=== PATIENT | male | born 1950 | race Caucasian/White ===

== ENCOUNTER 2019-06-05 06:55 | Day surgery (SDC) | payer MEDICARE, BC ==
[2019-06-05] MEDS ORDERED: Sodium Chloride 0.9% 10 ML Syringe FLUSH PRN (07:00)
[2019-06-05] MEDS ORDERED: Lactated Ringers 1,000 ML IV SCH (07:00)
[2019-06-05] MEDS ORDERED: Lidocaine 2% 100 MG/5 ML Syringe ONE (07:57)
[2019-06-05] MEDS ORDERED: Propofol 200 MG/20 ML SDV ONE (07:57)
[2019-06-05] MEDS ORDERED: Midazolam 1 MG/ML 2 ML SDV ONE (07:57)
[2019-06-05] MEDS ORDERED: EPINEPHrine 1:10,000 1 MG/10 ML Syringe ONE (08:06)
--- NOTE | 2019-06-05 08:40 | PCM.PRNOTE ---
- Free Text/Narrative Note: PROCEDURE PERFORMED: Esophagogastroduodenoscopy with biopsy PRE-PROCEDURE DIAGNOSIS/INDICATION FOR PROCEDURE: Persistent reflux despite PPI CONSENT: Informed consent was obtained prior to the procedure after discussion of the risks (including pain, bleeding, infection, perforation, need for further procedures, adverse reaction to anesthesia, cardiovascular event), benefits and alternatives and expected outcomes. Verbal consent given and consent form signed. PROCEDURAL PAUSE: Completed SEDATION: Per anesthesia DESCRIPTION OF PROCEDURE: Patient was brought back to the operating room and placed in a left lateral decubitus position. Bite block placed. After adequate sedation and anesthetic was administered, endoscope was inserted into the patient's mouth and was passed easily through the esophagus and stomach into the duodenum without difficulty. Examined duodenum normal appearing. Pylorus normal appearing. Stomach, including viewing in retroflexion, with very mild gastritis; biopsies for H. pylori obtained. 5cm hiatal hernia was present with the gastroesophageal junction fairly regular at 41cm from the incisors. Herniation with mild irritation for which biopsies obtained. Esophagus normal appearing. The scope was removed without difficulty. Patient tolerated the procedure well. No complications. IMPRESSION: Esophagogastroduodenoscopy performed revealing: - Mild gatritis, pathology now pending for H. pylori - 5cm hiatal hernia, pathology now pending for associated gastritis PLAN: Will contact the patient when pathology results received. Discussed appropriate administration of antacid medication.
[2019-06-05 09:24] VITALS: PULSE 50
[2019-06-05 11:55] VITALS: BP 160/74
== END 2019-06-05 10:40 | disposition home or self-care (01) ==
LOC: KA.SDS 06:55
PROVIDERS: ATTEND Family Medicine
DX: K21.9 Gastro-esophageal reflux disease without esophagitis (principal); K29.50 Unspecified chronic gastritis without bleeding; K44.9 Diaphragmatic hernia without obstruction or gangrene; I25.10 Atherosclerotic heart disease of native coronary artery without angina pectoris; E78.00 Pure hypercholesterolemia, unspecified; M35.3 Polymyalgia rheumatica; Z95.1 Presence of aortocoronary bypass graft; Z79.52 Long term (current) use of systemic steroids; Z88.8 Allergy status to other drugs, medicaments and biological substances; Z79.82 Long term (current) use of aspirin; Z79.899 Other long term (current) drug therapy
CPT/HCPCS: 00731; J2001; J2250; J2704; J7120

== ENCOUNTER 2020-04-01 07:57 | Day surgery (SDC) | payer MEDICARE, BC ==
[2020-04-01] MEDS ORDERED: Sodium Chloride 0.9% 10 ML Syringe FLUSH PRN (08:00)
[2020-04-01] MEDS: Lactated Ringers 1,000 ML IV SCH (08:35)
[2020-04-01] MEDS ORDERED: Propofol 200 MG/20 ML SDV ONE (08:46)
--- NOTE | 2020-04-01 10:25 | PCM.PRNOTE ---
- Free Text/Narrative Note: PROCEDURE PERFORMED: Colonoscopy with polypectomy PRE-PROCEDURE DIAGNOSIS/INDICATION FOR PROCEDURE: Chronic abdominal pain, weight loss, last colonoscopy 10/26/2014 CONSENT: Informed consent was obtained prior to the procedure after discussion of the risks (including pain, bleeding, infection, perforation, missed polyps, inability to completely remove polyps or complete procedure necessitating repeat colonoscopy, adverse reaction to anesthesia, cardiovascular event), benefits and alternatives and expected outcomes. The patient expressed understanding and wished to proceed. Verbal consent given and consent form signed. PROCEDURAL PAUSE: Completed SEDATION: Per anesthesia DESCRIPTION OF PROCEDURE: Patient was placed in the left lateral decubitus position. After adequate sedation and anesthetic was administered, a rectal exam was performed revealing approximately 50g prostate without nodules and no other abnormalities. A lubricated Olympus Video Colonoscope was inserted into the rectum and air insufflation was performed. The colonoscope was advanced through the rectum, sigmoid, descending, transverse, and ascending colon without difficulties. The cecum was reached and the ileocecal valve as well as the appendiceal orifice were identified and pictorially documented. Terminal ileum was entered and noted to be normal appearing. After adequate visualization of the cecum, the scope was withdrawn, giving 360-degree views of the colonic mucosa and retroflexion was performed in the rectum with the following findings noted: Terminal ileum: Normal Ileocecal valve: Normal Cecum: Normal Ascending colon: Normal Hepatic flexure: Normal Transverse colon: One polyp at 85cm removed with cold forceps Splenic flexure: Normal Descending colon: Normal Sigmoid colon: Mild diverticulosis without evidence of inflammation Rectum: Mild internal hemorrhoids The scope was straightened, air suction performed, and the scope withdrawn without complication. [place] Bowel Prep Score 9/9. IMPRESSION: Colonoscopy performed revealing one polyp, pathology now pending; mild sigmoid diverticulosis; and mild internal hemorrhoids. PLAN: Will contact the patient when pathology results received with recommendation for repeat colonoscopy. Encourage increased fiber diet and bowel regimen to ensure 1-2 soft bowel movements per day. Follow-up in clinic in 1 week as well as with gastroenterology as scheduled for ongoing management.
[2020-04-01 10:31] VITALS: BP 125/70
[2020-04-01 11:47] VITALS: PULSE 60
== END 2020-04-01 11:31 | disposition home or self-care (01) ==
LOC: KA.SDS 07:57
PROVIDERS: ATTEND Family Medicine
DX: K63.5 Polyp of colon (principal); K57.30 Diverticulosis of large intestine without perforation or abscess without bleeding; K64.8 Other hemorrhoids; K44.9 Diaphragmatic hernia without obstruction or gangrene; I25.10 Atherosclerotic heart disease of native coronary artery without angina pectoris; I35.1 Nonrheumatic aortic (valve) insufficiency; E04.1 Nontoxic single thyroid nodule; E53.8 Deficiency of other specified B group vitamins; E78.00 Pure hypercholesterolemia, unspecified; N40.1 Benign prostatic hyperplasia with lower urinary tract symptoms; R35.1 Nocturia; M85.89 Other specified disorders of bone density and structure, multiple sites; H33.22 Serous retinal detachment, left eye; K21.9 Gastro-esophageal reflux disease without esophagitis; Z88.8 Allergy status to other drugs, medicaments and biological substances
CPT/HCPCS: 00812; J2704; J7120